=== PATIENT | female | born 1980 | race Caucasian/White ===

== ENCOUNTER → 2018-07-01 | Outpatient (CLI) | payer BC ==
--- NOTE | 2018-07-01 11:56 | Diagnostic Imaging Report ---
INDICATION: Routine screening. No prior mammograms are available for comparison. This is a baseline study. 2-D and 3-D bilateral screening mammography was performed with a Computer Aided Detection (CAD) system. FINDINGS: Both breasts are heterogeneously dense, limiting the sensitivity of mammography. Right breast demonstrates 3 separate clusters of microcalcifications these appear to be primarily punctate but magnification views are recommended. Left breast is unremarkable. No mass is detected. Axillae are unremarkable. IMPRESSION: Right breast calcifications, indeterminate. Magnification views and 90 degree lateral views recommended for further evaluation. ACR BI-RADS Category 0: Incomplete. (Needs additional imaging evaluation). Result letter will be mailed to the patient. Note: At least 10% of breast cancer is not imaged by mammography. Dictated by: Dictated on workstation # [id number]
== END ==
LOC: RAD 07:54
PROVIDERS: ATTEND Obstetrics & Gynecology
DX: Z12.31 Encounter for screening mammogram for malignant neoplasm of breast (principal); R92.1 Mammographic calcification found on diagnostic imaging of breast
CPT/HCPCS: 77067

== ENCOUNTER → 2018-08-15 | Outpatient (CLI) | payer BC ==
--- NOTE | 2018-08-15 22:53 | Diagnostic Imaging Report ---
INDICATION: Right breast calcifications. Correlation is made with screening study from 07/01/2018. Unilateral right 2-D and 3-D diagnostic mammography was performed including magnification CC and ML views as well as conventional 90 degree lateral view with a Computer Aided Detection (CAD) system. FINDINGS: There are numerous calcifications in the right breast. Calcifications posteriorly located and in the outer portion of the right breast appear to be fairly benign and mostly round. No pleomorphism or soft tissue mass is seen. There is a cluster in the retroareolar right breast. These two appear to be fairly round on the magnification CC and ML views. No mass is seen. IMPRESSION: Likely benign calcifications in the right breast. Even so, followup right mammogram in 6 months is recommended to confirm stability. ACR BI-RADS Category 3: Probably benign findings. Result letter will be mailed to the patient. Note: At least 10% of breast cancer is not imaged by mammography. Dictated by: Dictated on workstation # [id number]
== END ==
LOC: RAD 08:08
PROVIDERS: ATTEND Obstetrics & Gynecology
DX: R92.1 Mammographic calcification found on diagnostic imaging of breast (principal)

== ENCOUNTER → 2019-07-30 | Outpatient (CLI) | payer BC ==
--- NOTE | 2019-07-30 10:57 | Diagnostic Imaging Report ---
INDICATION: RT ANKLE PAIN COMPARISON: Foot radiographs from same day. FINDINGS: Multiple radiographic views of the right ankle were obtained. There is no acute fracture or dislocation of the right ankle. Tibiotalar joint space is maintained. Note is made of comminuted fracture of the 5th metatarsal shaft. This is better visualized on dedicated radiographic series of the right foot. Please refer that report for further description. No unexpected radiopaque foreign bodies are seen. IMPRESSION: 1. No acute fracture or dislocation right foot. 2. Acute comminuted fracture of the 5th metatarsal. Dictated by: Dictated on workstation # [id number]
--- NOTE | 2019-07-30 11:11 | Diagnostic Imaging Report ---
INDICATION: Pain and bruising. Swelling. Injury. COMPARISON: None FINDINGS: 3 radiographic views of the right foot were obtained and demonstrate acute mildly comminuted fracture of the midshaft of the 5th metatarsal. There is mild medial subluxation and proximal retraction of the distal fracture fragment. There is no intra-articular extension. Joint spaces are maintained. No unexpected radiopaque foreign bodies are seen. IMPRESSION: 1. Acute fracture of the 5th metatarsal as described above. Dictated by: Dictated on workstation # [id number]
== END ==
LOC: RAD 10:07
PROVIDERS: ATTEND Nurse Practitioner
DX: S92.354A Nondisplaced fracture of fifth metatarsal bone, right foot, initial encounter for closed fracture (principal); X58.XXXA Exposure to other specified factors, initial encounter
CPT/HCPCS: 73610; 73630

== ENCOUNTER → 2019-08-15 | Outpatient (CLI) | payer BC ==
--- NOTE | 2019-08-15 20:13 | Diagnostic Imaging Report ---
INDICATION: 2-D and 3-D digital screening with CAD. Compared 06/2018 Digital mammography with computer-assisted detection is performed. FINDINGS: Heterogeneously dense parenchymal pattern showed no change. No dominant mass, spiculated lesion, architectural distortion or suspicious calcifications. IMPRESSION: Stable negative mammograms ACR BI-RADS Category 1: Negative Result letter will be mailed to the patient. Note: At least 10% of breast cancer is not imaged by mammography. Dictated by: Dictated on workstation # [id number]
== END ==
LOC: RAD 14:01
PROVIDERS: ATTEND Obstetrics & Gynecology
DX: Z12.31 Encounter for screening mammogram for malignant neoplasm of breast (principal)
CPT/HCPCS: 77063; 77067

== ENCOUNTER → 2019-12-04 | Outpatient (CLI) | payer BC ==
[~2019-12-04] VITALS: Ht 157.5 cm; Wt 54.5 kg
[~2019-12-04] MED LIST: GADOBUTROL 7.5 MMOL/7.5 ML (GADAVIST) VIAL IV ONE; IOHEXOL 300 MG/ML 50 ML (OMNIPAQUE 300) VIAL IV ONE
--- NOTE | 2019-12-04 15:11 | Diagnostic Imaging Report ---
Right shoulder injection for MRI. Indication: Shoulder pain. Following aseptic preparation of the skin and administration of local anesthesia, a 21-gauge needle was advanced into the glenohumeral joint using fluoroscopic guidance. Subsequently 12 mL mixture of Omnipaque 240, Gadavist and sodium chloride was infused. The patient tolerated the procedure well and was sent to the MRI suite in good condition. Impression: There has been a successful injection of the right glenohumeral joint. MRI is pending for further evaluation. Dictated by: Dictated on workstation # [id number]
--- NOTE | 2019-12-04 16:04 | Diagnostic Imaging Report ---
PROCEDURE: MRI upper extremity any joint with contrast right. TECHNIQUE: Multiplanar, multisequence contrast-enhanced MRI of the right upper extremity was accomplished. INDICATION: Right arm pain On the coronal T1 fat saturated series there is a linear area of increased signal extending longitudinally through the superior labrum anteriorly. This is located in the 1-2 o'clock position. I do suspect that this represents a small labral tear. The labrum is otherwise intact. There is also a small linear area of increased signal along the anterior most insertion of the rotator cuff on the coronal IR series. I suspect this represents a small rim rent tear. The supraspinatus muscle in this area may be slightly bunched but is not retracted. There is hypertrophy of the acromioclavicular joint and this does result in mild narrowing of the outlet for the supraspinatous muscle. The biceps tendon and the subscapularis tendon are intact. However the inferior glenohumeral ligament appears to be at least partially disrupted and this does suggest a HAGL lesion. There is no abnormal signal arising from the osseous structures to indicate bone edema or fracture. IMPRESSION: 1. There is a small SLAP 2 tear of the labrum. The labrum is otherwise intact. 2. There is also a small rim rent tear along the anterior most insertion of the rotator cuff. The supraspinatus muscle is slightly bunched but not retracted. 3. The attachment of the inferior glenohumeral ligament to the humerus appears to be at least partially disrupted. This does suggest a HAGL lesion. 4.. There is hypertrophy of the acromioclavicular joint and this does result in mild narrowing of the outlet for the supraspinatus muscle. 5.. There is no acute bony abnormality appreciated. 6. These results were discussed with MARIAN Puente. Dictated by: Dictated on workstation # [id number]
== END ==
LOC: RAD 13:30
PROVIDERS: ATTEND Nurse Practitioner
DX: S43.431A Superior glenoid labrum lesion of right shoulder, initial encounter (principal); M89.311 Hypertrophy of bone, right shoulder
CPT/HCPCS: 23350; 73040; 73222

== ENCOUNTER → 2021-09-22 | Outpatient (CLI) | payer BC ==
--- NOTE | 2021-09-22 11:29 | Diagnostic Imaging Report ---
CLINICAL INDICATION: Patient with chronic low back pain. EXAM: Axial CT scan of the lumbar spine without contrast. Sagittal and coronal reformatted images are created. Auto Exposure Controls were utilized during the CT exam to meet ALARA standards for radiation dose reduction. COMPARISON: None. FINDINGS: There is no acute lumbar spine fracture or dislocation. The vertebral body heights and intervertebral disc heights are maintained. There are small anterior spurs seen from the L3 through L5 levels. There is no significant central canal or neural foramen narrowing. There is mild right L3-L4 facet arthropathy. There is moderate right facet arthropathy/hypertrophy at the L4-L5 and L5-S1 levels. There is no significant paraspinal soft tissue abnormality. There is mild sclerosis of the sacroiliac joints bilaterally with no erosive changes seen. IMPRESSION: 1: There is no acute lumbar spine fracture or dislocation. 2: There is facet arthropathy/hypertrophy involving the right L3 through S1 levels. There are small spurs anteriorly involving the lumbar spine. There is no significant central spinal canal or neural foramen narrowing. Dictated by: Dictated on workstation # [id number]
== END ==
LOC: RAD 09:15
PROVIDERS: ATTEND Orthopaedic Surgery Orthopaedic Surgery of the Spine
DX: M47.817 Spondylosis without myelopathy or radiculopathy, lumbosacral region (principal)
CPT/HCPCS: 72131

== ENCOUNTER → 2022-07-26 | Outpatient (CLI) | payer BC ==
--- NOTE | 2022-07-26 15:41 | Diagnostic Imaging Report ---
INDICATION: Palpable abnormality in the right breast. TECHNIQUE: Bilateral 3D diagnostic mammography was performed. Focused ultrasonography was also performed in the upper outer quadrant of the right breast. COMPARISON: 08/15/2019. FINDINGS: There is a new focal rounded density in the 9 o'clock position of the right breast. This is associated with numerous microcalcifications. Microcalcifications are also seen more posteriorly and medially occupying the lateral half of the right breast. Otherwise, no new dominant mass or suspicious calcification is seen elsewhere in the right breast or within the left breast. There is no evidence of skin thickening. Ultrasonography reveals an irregular hypoechoic region measuring approximately 1.7 x 1.2 x 1.9 cm in the 9 o'clock position of the right breast corresponding to the patient's palpable abnormality. There is also a prominent right axillary lymph node with a long axis measurement of 1.5 cm. IMPRESSION: 1. A developing mass is now seen in the lateral right breast and an ultrasound-guided biopsy is recommended for histologic diagnosis. Alternatively, a stereotactic biopsy could be performed as well. These recommendations were shared with the patient at the time of the examination. 2. There is also a prominent 1.5 cm right axillary lymph node. 3. The patient's referring clinician has been notified about the suspicious mammographic finding and recommendations. ACR BI-RADS Category 4: Suspicious abnormality. Result letter will be mailed to the patient. Note: At least 10% of breast cancer is not imaged by mammography. Dictated by: Dictated on workstation # [id number]
--- NOTE | 2022-07-26 15:50 | Diagnostic Imaging Report ---
INDICATION: Palpable abnormality in the right breast. FINDINGS: Ultrasonography reveals an irregular hypoechoic region measuring approximately 1.7 x 1.2 x 1.9 cm in the 9 o'clock position of the right breast corresponding to the patient's palpable abnormality. There is also a prominent right axillary lymph node with a long axis measurement of 1.5 cm. IMPRESSION: Suspicious finding as above. An ultrasound-guided biopsy is recommended for histologic diagnosis. ACR BI-RADS Category 4: Suspicious abnormality. Dictated by: Dictated on workstation # [id number]
== END ==
LOC: RAD 12:28
PROVIDERS: ATTEND Obstetrics & Gynecology
DX: N63.15 Unspecified lump in the right breast, overlapping quadrants (principal); R59.0 Localized enlarged lymph nodes
CPT/HCPCS: 77062; 77066

== ENCOUNTER → 2022-08-04 | Outpatient (CLI) | payer BC ==
[~2022-08-04] VITALS: Ht 157.5 cm; Wt 68.2 kg
[~2022-08-04] MED LIST changes: -GADOBUTROL 7.5 MMOL/7.5 ML (GADAVIST) VIAL IV ONE; -IOHEXOL 300 MG/ML 50 ML (OMNIPAQUE 300) VIAL IV ONE; +LIDOCAINE 1% INJ 10 ML VIAL INJ ONE
--- NOTE | 2022-08-04 10:45 | Diagnostic Imaging Report ---
INDICATION: Right breast mass as well as mildly prominent right axillary lymph node. PROCEDURE: The patient presents for axillary lymph node biopsy. Right axilla was evaluated to evaluate appropriate entry site. Right axilla was then prepped and draped in the usual sterile fashion. A small amount of 1% lidocaine was utilized for local anesthesia. A total of 3 passes were made into a mildly prominent lymph node in the right axilla utilizing a 14-gauge Achieve needle. A marker clip was then deployed. The needle was removed and hemostasis was obtained. The patient tolerated the procedure well and left the Department in stable condition. IMPRESSION: Successful ultrasound guided core biopsy of a mildly prominent right axillary lymph node. Pathology results are currently pending. Dictated by: Dictated on workstation # [id number]
--- NOTE | 2022-08-04 10:57 | Diagnostic Imaging Report ---
INDICATION: Right breast mass. PROCEDURE: The patient presents for ultrasound-guided core biopsy. The patient was brought to the sonographic suite and placed on the table in the supine position. Ultrasound imaging of the right breast was performed to evaluate appropriate entry site. Right breast was then prepped and draped in the usual sterile fashion. A small amount of 1% lidocaine was utilized for local anesthesia. A total of 4 core biopsies were obtained through the ill-defined hypoechoic mass at the 9:00 location of the right breast utilizing the 14-gauge Achieve needle. A marker clip was then deployed. Hemostasis was obtained using manual compression. Patient tolerated the procedure well and was sent for post procedure mammogram in satisfactory condition. IMPRESSION: Successful ultrasound guided core biopsy of the irregular hypoechoic mass at the 9:00 location of the right breast. Pathology results are currently pending. Dictated by: Dictated on workstation # [id number]
--- NOTE | 2022-08-04 15:30 | Diagnostic Imaging Report ---
INDICATION: Status post right breast ultrasound-guided biopsy. A unilateral right 2-D CC and ML mammography was performed after patient underwent ultrasound-guided biopsy. There is a marker clip adjacent to the irregular mass in the outer aspect of the right breast. The marker placed in the right axillary lymph node is not included on this radiograph. IMPRESSION: Marker clip placement status post right breast ultrasound-guided biopsy. Dictated by: Dictated on workstation # [id number]
== END ==
LOC: RAD 08:40
PROVIDERS: ATTEND Obstetrics & Gynecology
DX: N63.15 Unspecified lump in the right breast, overlapping quadrants (principal); Z98.890 Other specified postprocedural states
CPT/HCPCS: 19083; 76942